=== PATIENT | female | born 1995 | race Caucasian/White ===

== ENCOUNTER 2024-01-09 05:12 | Inpatient (IN) | payer BC ==
[2024-01-09 05:35] VITALS: BMI 25.7
[2024-01-09] MEDS ORDERED: hydrALAZINE 20 MG/ML VIAL SLOW IVP PRN ×2 (05:58→06:27)
[2024-01-09] MEDS ORDERED: Calcium Gluc 4.6 MEQ/10 ML (100 MG/ML) SLOW IVP PRN (06:17)
[2024-01-09] MEDS ORDERED: Lorazepam 2 MG/ML VIAL SLOW IVP PRN (06:17)
[2024-01-09 06:24] LABS: Bilirubin Neg (Negative); Blood, Urine Negative (Negative); Clarity Slightly Cloudy (Clear); Glucose, Urine (Dipstick) >=1000 mg/dL (Negative); Ketone, Urine Negative (Negative); Leukocyte Negative (Negative); Nitrite Negative (Negative); Protein, Urine (Dipstick) 30 mg/dl (Neg-Trace); Specific Gravity, Urine 1.015 (1.005-1.030); Urobilinogen Normal mg/dL (Less than 2)
[2024-01-09] MEDS: Magnesium Sulfate 20 gm/500 ml 20 GM/500 ML BAG IVPB SCH (06:26)
[2024-01-09] MEDS: Betamet Acet/Betamet Na Ph 30 MG/5 ML VIAL IM SCH (06:26)
[2024-01-09] MEDS ORDERED: Misoprostol 200 MCG TAB PR PRN (06:27)
[2024-01-09] MEDS ORDERED: Acetaminophen 500 MG TAB PO PRN (06:27)
[2024-01-09] MEDS ORDERED: Diphenoxylate HCl/Atropine Tablet PO PRN (06:27)
[2024-01-09] MEDS ORDERED: Promethazine HCl 25 MG/ML VIAL IM PRN (06:27)
[2024-01-09] MEDS ORDERED: Methylergonovine 0.2 MG/ML VIAL IM PRN (06:27)
[2024-01-09] MEDS ORDERED: Tranexamic Acid 1,000 MG/10 ML VIAL IVP PRN (06:27)
[2024-01-09] MEDS ORDERED: Ondansetron PF 4 MG/2 ML Vial IVP PRN (06:27)
[2024-01-09] MEDS ORDERED: Carboprost 250 MCG/ML AMP IM PRN (06:27)
[2024-01-09] MEDS ORDERED: Oxytocin 30 units/NS 500 ML 500 ML IV SCH (06:30)
[2024-01-09] MEDS: NIFEdipine 10 MG CAP PO SCH (06:33)
[2024-01-09] MEDS: Penicillin G Potassium 5 MILL.UNITS VIAL ONE (06:36)
[2024-01-09 06:46] LABS: Bacteria/HPF 1+ HPF (None Seen); CAUTI Indications for Culture Pregnancy; RBC/HPF None Seen HPF (0-3); WBC/HPF 0-3 HPF (0-3)
[2024-01-09 06:47] LABS: Urine Culture Reflex Yes Yes
[2024-01-09 07:08] LABS: FFN Internal QC Analyzer PASS (PASS); FFN Internal QC Cassette PASS (PASS); Fetal Fibronectin POSITIVE (Negative)
[2024-01-09] MEDS: Betamet Acet/Betamet Na Ph 30 MG/5 ML VIAL ONE (07:22)
[2024-01-09] MEDS: Lactated Ringer's 1,000 ML IV SCH (07:23)
[2024-01-09] MEDS: Magnesium Sulfate 20 gm/500 ml 20 GM/500 ML BAG ONE (07:23)
[2024-01-09] MEDS: fentaNYL 50 mcg/mL 1 mL Vial SLOW IVP PRN (07:29)
[2024-01-09 07:53] LABS: #Basophils 0.09 10x3/uL (0.0-0.2); #Eosinphils 0.22 10x3/uL (0.0-0.5); #Monocytes 1.11 10x3/uL (0.0-1.1); #Neutrophils 14.19 10x3/uL (1.5-8.4); %Basophils 0.5 % (0.0-2.0); %Eosinophils 1.2 % (0.0-6.0); %Lymphocytes 13.9 % (18.0-47.0); %Neutrophils 76.6 % (40.0-75.0); Hematocrit 37.4 % (34.9-44.5); Hemoglobin 12.9 g/dL (12.0-15.5); Mean Corpuscular HGB CONC 34.5 g/dL (32.0-36.0); Mean Corpuscular Hemoglobin 30.5 pg (27.0-33.0); Mean Corpuscular Volume 88.4 fl (81.6-98.3); Mean Platelet Volume 10.6 fl (7.4-10.4); Platelet Count 286 10x3/uL (150-450); RBC Distribution Width 12.2 % (11.5-14.5); Red Blood Cell (RBC) Count 4.23 10x6/uL (3.90-5.03); White Blood Cell (WBC) Count 18.5 10x3/uL (3.5-10.5)
[2024-01-09 08:16] LABS: ALT (SGPT) 10 U/L (8-55); AST (SGOT) 16 U/L (5-34); Albumin 3.1 g/dL (3.5-5.0); Alkaline Phosphatase 119 U/L (40-110); Anion Gap 18 mmol/L (10-20); BUN (Urea Nitrogen) 9 mg/dL (7.0-18.7); Bilirubin, Total 0.5 mg/dL (0.2-1.2); Calc. Creatinine Clearance 122 mL/min (70-130); Calcium 9.7 mg/dL (7.8-10.44); Carbon Dioxide 19 mmol/L (22-29); Chloride 103 mmol/L (98-107); Estimated GFR 109; Globulin 4.2 g/dL (2.4-3.5); Glucose 167 mg/dL (70-105); Potassium 3.8 mmol/L (3.5-5.1); Protein, Total 7.3 g/dL (6.0-8.3); Sodium 136 mmol/L (136-145)
[2024-01-09] MEDS ORDERED: Indomethacin 25 mg Capsule PO PRN (08:24)
[2024-01-09] MEDS ORDERED: Levothyroxine Sodium 200 MCG VIAL IVP SCH (08:30)
[2024-01-09 08:36] LABS: Hep B Surf Ag - L&D Non-Reactive S/CO (NonReactive); Syphilis Antibody Nonreactive (Nonreactive); Syphilis Antibody Index 0.03 S/CO (<1.00 Non-Reactive)
[2024-01-09] MEDS ORDERED: HumaLOG 300 UNITS/3 ML VIAL SC PRN ×2 (08:39)
[2024-01-09] MEDS ORDERED: Dextrose 50% Abboject 50 ML SYRINGE SLOW IVP PRN (08:39)
[2024-01-09] MEDS ORDERED: Dextrose 5% in Water 1,000 ML IV PRN (08:39)
[2024-01-09] MEDS ORDERED: Glucagon 1 MG/ML KIT IM PRN (08:39)
[2024-01-09] MEDS ORDERED: INSULIN PUMP FS PRN (08:40)
[2024-01-09] MEDS: CEFAZOLIN 1 GM in Sodium Chloride 0.9% 100 ML IVPB SCH (08:57)
[2024-01-09] MEDS: Indomethacin 25 mg Capsule PO SCH ×2 (09:06→14:59)
[2024-01-09] MEDS ORDERED: Penicillin G 2.5 MILL.units 2.5 MILL.UNITS in Premix 1 BAG IVPB SCH (10:30)
[2024-01-09] MEDS: Levothyroxine Sodium 75 MCG TAB PO SCH (11:04)
[2024-01-09 13:23] LABS: Critical Call Chemistry NUR.LHL@1123
[2024-01-09 17:05] LABS: Magnesium 6.4 mg/dL (1.6-2.6)
[2024-01-09 21:28] LABS: Critical Call Chemistry NUR.DH0 @ 2124; Magnesium 6.5 mg/dL (1.6-2.6)
[2024-01-10 00:45] LABS: Critical Call Chemistry L&D.CMH @0045; Magnesium 6.6 mg/dL (1.6-2.6)
[2024-01-10 04:36] LABS: Critical Call Chemistry L&D.CMH @ 0435; Magnesium 6.7 mg/dL (1.6-2.6)
[2024-01-10] MEDS ORDERED: Levothyroxine 100 MCG SDV IVP SCH (06:00)
[2024-01-10] MEDS: Cephalexin 500 MG CAP PO SCH (09:19)
[2024-01-10 09:33] LABS: Critical Call Chemistry NUR.EKE@0930; Magnesium 6.9 mg/dL (1.6-2.6)
[2024-01-10] MEDS: Prenatal Vitamin 1 TAB PO SCH (09:58)
[2024-01-10] MEDS: Polyethylene Glycol 3350 17 GM Packet PO SCH (11:49)
[2024-01-10] MEDS ORDERED: Mineral Oil ENEMA PR SCH (12:00)
[2024-01-10 13:16] LABS: Critical Call Chemistry NUR.SBF@1316; Magnesium 6.8 mg/dL (1.6-2.6)
[2024-01-10 17:30] LABS: Critical Call Chemistry NUR.SNP@1730; Magnesium 6.8 mg/dL (1.6-2.6)
[2024-01-11] MEDS ORDERED: Polyethylene Glycol 3350 17 GM Packet PO SCH (09:00)
== END 2024-01-10 21:15 | disposition home or self-care (01) | DRG 832 ==
LOC: CSHERS 05:12 → CSHLD 07:00
PROVIDERS: ADMIT Obstetrics & Gynecology; ATTEND Obstetrics & Gynecology
DX: O60.03 Preterm labor without delivery, third trimester (principal); O23.42 Unspecified infection of urinary tract in pregnancy, second trimester; O24.012 Pre-existing type 1 diabetes mellitus, in pregnancy, second trimester; O99.282 Endocrine, nutritional and metabolic diseases complicating pregnancy, second trimester; E03.9 Hypothyroidism, unspecified; Z79.4 Long term (current) use of insulin; Z79.899 Other long term (current) drug therapy; Z3A.28 28 weeks gestation of pregnancy
CPT/HCPCS: 36415; 76815; 76819; 80053; 81001; 82731; 83735; 85025; 86780; 86850; 86900; 86901; 87086; 87340; 87480; 87510; 87660; J0690; J0702; J2540; J3010; J3475; J3490